=== PATIENT | male | born 1975 | race Caucasian/White ===

== ENCOUNTER → 2016-12-24 | Outpatient (CLI) | payer BC ==
--- NOTE | 2016-12-24 15:51 | DI ---
MRI CERVICAL SPINE W/O CN,12/24/2016 1:50 PM: Clinical History: Cervical neck pain with evidence of disc disease. Previous Exam: None at this facility. Findings: Multiplanar MR images are obtained through the cervical spine without contrast, and demonstrate anato katelyn alignment without fractures. Vertebral body height is preserved. Marrow signal is preserved. The prevertebral soft tissues are unremarkable. The base of the skull is also unremarkable. Paravertebral soft tissues are unremarkable. Individual intervertebral disc spaces: C2/3: No significant stenosis. C3/4: There is very mild uncovertebral joint osteophytes without significant stenosis. C4/5: Few uncovertebral joint osteophytes without significant stenosis. C5/6: There is disc desiccation, loss of intervertebral disc height and signal and uncovertebral join t osteophytes with some mild facet hypertrophy contributing to moderate to severe bilateral neural fo raminal narrowing. There is also mild central canal stenosis. C6/7: There is disc desiccation and, loss of intervertebral disc height, some annular fissuring and u ncovertebral joint osteophytes contributing to mild left and moderate right neural foraminal narrowin g with moderate central canal stenosis. C7/T1: No significant stenosis. Impression: C5/6: There is disc desiccation, loss of intervertebral disc height and signal and uncovertebral join t osteophytes with some mild facet hypertrophy contributing to moderate to severe bilateral neural fo raminal narrowing. There is also mild central canal stenosis. C6/7: There is disc desiccation and, loss of intervertebral disc height, some annular fissuring and u ncovertebral joint osteophytes contributing to mild left and moderate right neural foraminal narrowin g with moderate central canal stenosis.
== END ==
LOC: MRI 13:44
PROVIDERS: ATTEND Physician Assistant
DX: M54.2 Cervicalgia (principal); M50.122 Cervical disc disorder at C5-C6 level with radiculopathy; M50.123 Cervical disc disorder at C6-C7 level with radiculopathy
CPT/HCPCS: 72141

== ENCOUNTER → 2017-01-08 | Outpatient (CLI) | payer BC ==
--- NOTE | 2017-01-08 21:38 | DI ---
CERVICAL SPINE SERIES, 01/08/2017 10:02 AM: Clinical History: Neck pain. Previous Exam: 04/07/2016. Upright lateral flexion and extension views are submitted. The vertebral bodies are normal in height and size. Mild to moderate disc space narrowing is present at C5-6 and C6-7 and both levels have ante rior and posterior bony proliferative change. The remaining cervical disc spaces are of normal height . Posterior alignment is normal and there is no instability with flexion and extension maneuvers. C1 articulates normally with C2 and the occiput. Prevertebral soft tissue planes are normal. Reading: Mild to moderate disc space narrowing at C5-6 and C6-7. There is no instability noted with flexion an d extension maneuvers.
== END ==
LOC: ORTHO 11:32
PROVIDERS: ATTEND Physician Assistant
DX: M54.2 Cervicalgia (principal); M48.02 Spinal stenosis, cervical region
CPT/HCPCS: 72040